=== PATIENT | male | born 1940 | race Caucasian/White ===

== ENCOUNTER 2016-09-22 13:59 | Inpatient (IN) ==
--- NOTE | 2016-09-22 15:25 | XRay Report ---
Portable chest Date: 09/22/2016 Clinical history: Alteration of consciousness Comparison: 08/01/2016 Technique: Portable AP sitting chest Findings: The heart is minimally enlarged with uncoiling of the aorta. Chronic scarring in the lungs with stable mediastinum and osseous structures. Chronic volume loss in the distal left clavicle. Impression: No acute cardiopulmonary pathology identified. PROCEDURE INTERPRETED AT [facility] DEPARTMENT OF RADIOLOGY Final Report Signed by: Dr. Aimee Atkins
--- NOTE | 2016-09-22 15:26 | CT Report ---
History: Mental status changes Date: 09/22/2016 Study: CT head without contrast Comparison exam: August 01, [address] sections were obtained through the head without IV contrast. This CT exam was performed using one or more the following dose reduction techniques: Automated exposure control, adjustment of the MA and/or KV according to patient size, or use of iterative reconstruction technique. There is moderate diffuse cerebral atrophy. The ventricles are midline in position without evidence of hydrocephalus. There is no mass or parenchymal hemorrhage. There is no gross CT evidence of acute cortical stroke. There is a moderate amount of ill-defined low density in the periventricular white matter without mass effect compatible with changes of small vessel disease. There are some changes of chronic ischemic disease in either putamen and also in the [place]. There is moderate distal carotid artery calcification. Impression: Chronic ischemic changes. Cerebral atrophy. No definite acute process. PROCEDURE INTERPRETED AT [facility] DEPARTMENT OF RADIOLOGY Final Report Signed by: Dr. Elsi Patricia
[2016-09-22 15:43] LABS: Basophils # 0.1 10*3/uL (0.0-0.2); Basophils % 0.5 % (0.0-0.8); Eosinophils % 0.3 % (0.00-10.9); Hematocrit 33.5 VOL% (42.0-52.0); Hemoglobin 11.8 GM/DL (14.0-18.0); Immature Granulocytes % 0.5 %; Immature Granulocytes Absolute 0.05 #; Lymphocytes # 1.4 10*3/uL (1.4-4.0); Lymphocytes % 14.8 % (21.2-54.2); Mean Corpuscular HGB Conc 35.2 GM/DL (32-36); Mean Corpuscular Hemoglobin 32 PG (27-34); Mean Corpuscular Volume 90.3 FL (87-102); Mean Platelet Volume 9.7 FL (9.6-12.0); Monocytes # 0.6 10*3/uL (0.11-0.8); Monocytes % 6.9 % (1.7-12.7); Neutrophils # 7.2 10*3/uL (1.4-7.4); Platelet Count 305 T/CUMM (130-400); Red Blood Count 3.71 MC/CUMM (3.8-5.5); Red Cell Distribution Width 13.4 % (9.3-17.3); White Blood Count 9.3 T/CUMM (4-12)
[2016-09-22 15:48] LABS: Apearance,Urine CLEAR (Clear); Bilirubin,Urine Negative (Negative); Blood, Urine Negative (Negative); Glucose,Urine (UA) Negative (Negative); Hyaline Casts,Urine 1 /LPF (0-3); Ketones,Urine 5 mg/dL (Negative); Nitrite,Urine Negative (Negative); Protein,Urine Negative; RBC,Urine 1 /HPF (0-4); Squamous Epithelial Cell,Urine Occasional /HPF (0-10); Urine Color Yellow (Yellow); Urine Specific Gravity 1.019 (1.001-1.035); Urine Urobilinogen < 2.0 EU/DL (0.2-1.0); WBC,Urine 2 /HPF (0-6)
[2016-09-22 16:01] LABS: Albumin 4.4 G/DL (3.4-5.0); Bilirubin,Total 0.5 MG/DL (0.2-1.0); Calcium 9.5 MG/DL (8.5-10.1); Osmolality,Calculated 278.4 MOS/KG (273-304); Potassium 5.1 MMOL/L (3.5-5.1); Total Protein 7.7 G/DL (6.4-8.3)
--- NOTE | 2016-09-22 16:12 | Emergency Department Note ---
Ezequiel Erickson Brittany, am scribing for, and in the presence of, Robbi Alvarez MD 15:07. Kim Erickson Phillip K, MD, personally performed the services described in this documentation, ascribed by Karli Nieves in my presence, and it is both accurate and complete 540 . Arrival - Arrival ED Nursing Triage Note: Brought in by EMS-sent from [facility] [place] for further evaluation of altered LOC and "abnormal movements". halfway staff states that they do not know when symptoms started. Mode of Arrival: Stretcher Limitations: No Limitations, Altered Mental Status (All information was given by daughter) Source: Family - History of Present Illness Onset (ago): unknown Consistency: constant Severity: moderate <Robbi Alvarez - Last Filed: 09/22/16 16:11> <Hima Pickering - Last Filed: 09/22/16 17:22> - Arrival Chief Complaint: Altered Mental Status Stated Complaint: Altered LOC Time Seen by Provider: 09/22/16 14:34 - History of Present Illness HPI Narrative: This is a 76 y/o white male,who presents to the ED by EMS for further evaluation of AMS. His daughter states she recieved a call earlier today and was told her father was having "abnormal movements" while at the halfway. His daughter states this all started back in May when he was staying with friends/family out of town and fell off a barstool. She state since then pt has gone "down hill". His daughter states pt has no normal baseline, each day is different for the pt. She reports pt has not ambulated since May. She states there has not been word of a fever. Pt's nurse called to the halfway and was told pt was started on Cogentin and Seroquel today. Pt has no other complaints/pain in the ED at this time. Pt has a PMHx of NIDDM, TIA, depression, Parkinson's disease, peripheral neuropathy, and dyslipidemia. Pt denies a surgical Hx. Pt denies a family medical hx. Pt denies a social Hx. ( Karli Nieves) This is a 76 y/o white male,who presents to the ED by EMS for further evaluation of AMS. His daughter states she recieved a call earlier today and was told her father was having "abnormal movements" while at the halfway. His daughter states this all started back in May when he was staying with friends/family out of town and fell off a barstool. She state since then pt has gone "down hill". His daughter states pt has no normal baseline, each day is different for the pt. She reports pt has not ambulated since May. She states there has not been word of a fever. Pt's nurse called to the halfway and was told pt was started on Cogentin and Seroquel today. Pt has no other complaints/pain in the ED at this time. Pt has a PMHx of NIDDM, TIA, depression, Parkinson's disease, peripheral neuropathy, and dyslipidemia. Pt denies a surgical Hx. Pt denies a family medical hx. Pt denies a social Hx. ( Robbi Alvarez) Allergies/Adverse Reactions: Allergies Allergy/AdvReac Type Severity Reaction Status Date / Time No Known Allergies Allergy Verified 08/01/16 18:41 Home Medications: Home Medications Medication Instructions Recorded Confirmed Type Acetaminophen [Acetaminophen ER 650 mg PO Q4H PRN 08/01/16 08/01/16 History Tab] Carbidopa/Levodopa 25-100 [Sinemet 2 tablet PO QID 08/01/16 08/01/16 History 25-100] Cholecalciferol (Vitamin D3) 4,000 unit PO DAILY 08/01/16 08/01/16 History [Vitamin D3] Citalopram [CeleXA] 20 mg PO DAILY 08/01/16 08/01/16 History Clopidogrel Bisulfate [Clopidogrel] 75 mg PO DAILY 08/01/16 08/01/16 History Cyanocobalamin (Vitamin B-12) 1,000 mcg PO DAILY 08/01/16 08/01/16 History [Vitamin B-12] Dextrose [Glucose 40% Gel] 15 gm PO DAILY PRN 08/01/16 08/01/16 History Ergocalciferol (Vitamin D2) 50,000 unit PO WE 08/01/16 08/01/16 History [Vitamin D2] Glucagon 1 mg IM PRN PRN 08/01/16 08/01/16 History Ibuprofen Tab [Motrin Tab] 400 mg PO Q8H PRN 08/01/16 08/01/16 History Magnesium Hydroxide Susp [Milk of 30 ml PO DAILY PRN 08/01/16 08/01/16 History Magnesia] Metformin HCl 1,000 mg PO BID 08/01/16 08/01/16 History Polyethylene Glycol Powder 17 gm PO DAILY 08/01/16 08/01/16 History [Miralax] Pramipexole [Mirapex] 1 mg PO TID 08/01/16 08/01/16 History Tamsulosin [Flomax] 0.4 mg PO DAILY 08/01/16 08/01/16 History Tramadol HCl [Ultram] 50 mg PO Q12H PRN 08/01/16 08/01/16 History Review of System - Review of System 12 point system: reviewed and no additional remarkable complaints except as stated - Review of System Constitutional: Absent: fever Neurological: Present: other (AMS) <Robbi Alvarez - Last Filed: 09/22/16 16:11> Medical,Surgical,& Family Hx - Medical History Psychological: History of: Depression Neurology: History of: Parkinson's Disease, Peripheral Neuropathy, TIA Endocrine: History of: Diabetes Mellitus (NIDDM), Dyslipidemia - Social History Smoking Status: Unknown if ever smoked Frequency of Alcohol Use: Unknown Type of Drug Use: Unknown <Robbi Alvarez - Last Filed: 09/22/16 16:11> Exam - General General appearance: in no apparent distress - Head Head exam: Present: atraumatic, normocephalic, normal inspection - Eye Eye exam: Present: other (Abrasion to the left eye lid) - ENT ENT exam: Present: normal oropharynx, mucous membranes dry, TM's normal bilaterally, normal external ear exam - Neck Neck exam: Present: normal inspection, full ROM, trachea midline. Absent: tenderness, meningismus, lymphadenopathy, thyromegaly - Chest Chest inspection: Present: normal inspection, symmetric chest wall rise. Absent : tenderness, rash, abscess - Respiratory Respiratory exam: Present: normal lung sounds bilaterally. Absent: rales, respiratory distress, rhonchi, stridor, wheezes - Cardiovascular Cardiovascular exam: Present: regular rate, normal rhythm, normal heart sounds. Absent: murmur, rubs, gallop, clicks, JVD - Abdominal Exam Abdominal exam: Present: soft, normal bowel sounds. Absent: distention, tenderness, guarding, rebound, rigidity - Rectal Exam Rectal exam: Present: deferred - Extremities Exam Extremities exam: Present: normal inspection, full ROM, normal capillary refill. Absent: tenderness, pedal edema, joint swelling, calf tenderness - Back Exam Back exam: Present: normal inspection, full ROM. Absent: tenderness, muscle spasm, rashes - Neurological Exam Neurological exam: Present: other (Does not follow commands) - Psychiatric Psychiatric exam: Present: normal affect, normal mood. Absent: depressed, agitated, anxious, flat affect, manic - Skin Skin exam: Present: warm, dry, intact, normal color. Absent: rash, cyanosis, diaphoresis, erythema, pallor, mottled <Robbi Alvarez - Last Filed: 09/22/16 16:11> - Rectal Exam Rectal exam: Present: heme (-) stool <Hima Pickering - Last Filed: 09/22/16 17:22> Vital Signs: Vital Signs Temperature 97.5 F L 09/22/16 14:07 Pulse Rate 69 09/22/16 14:07 Respiratory Rate 18 09/22/16 14:25 Blood Pressure 118/65 09/22/16 14:07 O2 Sat by Pulse Oximetry 100 09/22/16 14:07 Course <Robbi Alvarez - Last Filed: 09/22/16 16:11> - Consultations Time: 17:21 <Hima Pickering - Last Filed: 09/22/16 17:22> - Consultations Consultation #1: Hospitalist will admit patient (Hima Pickering) Results - EKG EKG results: interpreted by ERMD, sinus rhythm (Nonspecific ST-T changes) - Diagnostic Findings Procedure: Chest x-ray: report reviewed by me (Nothing acute.), CT: report reviewed by me (CT head shows no acute intracranial abnormality.) <Robbi Alvarez - Last Filed: 09/22/16 16:11> - Labs CBC & BMP: 09/22/16 15:34 09/22/16 15:34 <Hima Pickering - Last Filed: 09/22/16 17:22> Disposition <Robbi Alvarez - Last Filed: 09/22/16 16:11> Case discussed with: patient, patient's family Time of Disposition: 17:22 <Hima Pickering - Last Filed: 09/22/16 17:22> Clinical Impression: Altered mental status, Acute renal failure, History of Parkinson's disease, Extrapyramidal and movement disorder Disposition: Still a Patient Condition: Stable
[2016-09-22] MEDS ORDERED: SODIUM CHLORIDE 0.9% 1,000 ML IV STA (16:28)
[2016-09-22] MEDS ORDERED: DEXTROSE 50% 25 GM/50 ML VIAL IV STA (16:28)
[2016-09-22] MEDS ORDERED: DEXTROSE 50% 25 GM/50 ML VIAL IV ONE (16:40)
--- NOTE | 2016-09-22 17:57 | Hospitalist History & Physical ---
Assessment and Plan (1) Dehydration Status: Acute Current Visit: Yes (2) Hypoglycemia Status: Acute Current Visit: Yes (3) Anemia Status: Acute Current Visit: Yes (4) Altered mental status Status: Acute Current Visit: Yes (5) Acute renal failure Status: Acute Current Visit: Yes (6) History of Parkinson's disease Status: Acute Current Visit: Yes (7) Extrapyramidal and movement disorder Status: Acute Assessment and plan: We will plan for this patient will be admitted meaning to our service put him on hydration. Recheck labs in the morning. Patient has increase in AST for some unknown reason order liver ultrasound. We will culture his urine. Since his has these chloroform dyskinesia type movements will consult neurology for their input on his regiment. Will hold his Cogentin. Evaluate his anemia. Current Visit: Yes History of Present Illness Chief complaint: Dyskinesia and altered mental status History of present illness: Mr. Barnhart is a 76 year old male with past medical history significant for Parkinson's, dementia, hallucinations, diabetes and peripheral vascular disease who presents to our ER today. Patient is a resident of [facility]. He is followed by Dr. Eduardo Mehta. This morning the skilled nursing called the daughter since that his dyskinesias with his arms and tongue movements were increased. They were going to try some Cogentin. After the gave him the Cogentin is sedated him and patient was sent up to our hospital to further evaluate his dyskinesias and altered mental status. His daughter reports that he is on been going downhill for a little while. 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 This is surprising given that he is 76 years old. She said in May he was living with friends out of town and fell off a barstool. And that he has been basically been going downhill since. She reports that he has no real normal baseline. She says every day is different. He has not walked since May. Patient is currently sedated and voices no complaints. He has been given IV fluids in the emergency room. I was consulted to admit him. I discussed CODE STATUS with the daughter. She says he is a DO NOT RESUSCITATE. She said this was voiced by the patient himself when he had a clear mind. Home Medications Medication Instructions Recorded Confirmed Type Carbidopa/Levodopa 25-100 [Sinemet 2 tablet PO QID 04/28/17 06/19/17 History 25-100] Citalopram [CeleXA] 20 mg PO DAILY 08/01/16 09/22/16 History Clopidogrel Bisulfate [Clopidogrel] 75 mg PO DAILY 08/01/16 09/22/16 History Dextrose [Glucose 40% Gel] 15 gm PO DAILY PRN 08/01/16 09/22/16 History Glucagon 1 mg IM PRN PRN 08/01/16 09/22/16 History Pramipexole [Mirapex] 1 mg PO TID 08/01/16 09/22/16 History Tamsulosin [Flomax] 0.4 mg PO DAILY 08/01/16 09/22/16 History Tramadol HCl [Ultram] 50 mg PO BID 08/01/16 09/22/16 History Aspirin EC Tab 81 mg PO DAILY 09/22/16 09/22/16 History Benztropine Mesylate 1 mg PO BID 09/22/16 09/22/16 History Cholecalciferol (Vitamin D3) 2,000 unit PO DAILY 09/22/16 09/22/16 History [Vitamin D3] Ibuprofen Tab [Motrin Tab] 800 mg PO Q8H PRN 09/22/16 09/22/16 History Metformin HCl 1,000 mg PO BID 09/22/16 09/22/16 History Multivitamin [Multivitamins] 1 each PO DAILY 09/22/16 09/22/16 History Nystatin [Nystatin Cream] 1 applic TOP BID 09/22/16 09/22/16 History QUEtiapine [SEROquel] 25 mg PO QPM 09/22/16 09/22/16 History Quetiapine Fumarate 25 mg PO DAILY 09/22/16 09/22/16 History Sulfameth/Trimeth 800-160 Tab 1 tablet PO BID 09/22/16 09/22/16 History [Bactrim DS Tab] amLODIPine [Norvasc] 5 mg PO DAILY 09/22/16 09/22/16 History Allergies Allergy/AdvReac Type Severity Reaction Status Date / Time No Known Allergies Allergy Verified 08/01/16 18:41 Medical,Surgical,& Family Hx - Medical History Psychological: History of: Depression Neurology: History of: Parkinson's Disease, Peripheral Neuropathy, TIA Endocrine: History of: Diabetes Mellitus (NIDDM), Dyslipidemia - Surgical History HEENT Surgeries: Surgical HX of: Carotid Endarterectomy - Family History Family History: Reports;: Family Hypertension - Social History Smoking Status: Unknown if ever smoked Frequency of Alcohol Use: None Type of Drug Use: Methamphetamine (None since May) ROS unobtainable: due to mental status Exam - Constitutional Vitals: Period Temp Pulse Resp BP Sys/Joyce Pulse Ox Last 24 Hr 97.5 F-97.5 F 69-69 18-20 118-118/65-65 100 General appearance: under weight - Head Head exam: Present: normal inspection - Eye Eye exam: Present: other (Patient has a bruise to the left eyelid) - ENT ENT exam: Present: normal exam - Respiratory Respiratory exam: Present: clear to auscultation bilaterally - Cardiovascular Cardiovascular exam: Present: regular rate and rhythm - GI/Abdominal GI/Abdominal exam: Present: normal bowel sounds, other (Heme-negative per ER exam) - Extremities Exam Extremities exam: Present: normal inspection - Back Exam Back exam: Present: normal inspection - Neurological Exam Neurological exam: Present: altered (Currently sedated) - Psychiatric Psychiatric exam: Present: other (Currently sedated) - Skin Skin exam: Present: normal color Results - Labs CBC & BMP: 09/22/16 15:34 09/22/16 15:34
[2016-09-22] MEDS ORDERED: ONDANSETRON 4 MG/2 ML VIAL IV PRN (18:05)
[2016-09-22] MEDS ORDERED: ACETAMINOPHEN 325 MG TABLET PO PRN (18:05)
[2016-09-22] MEDS ORDERED: DEXTROSE 50% 25 GM/50 ML VIAL IV PRN (18:15)
[2016-09-22] MEDS ORDERED: GLUCAGON 1 MG VIAL IM PRN (18:15)
[2016-09-22] MEDS ORDERED: QUEtiapine 25 MG TABLET PO SCH (19:00)
[2016-09-22 19:06] LABS: Vitamin B12 304 PG/ML (211-911)
[2016-09-22] MEDS: CARBIDOPA/LEVODOPA 25-100 MG TABLET PO SCH (21:01)
[2016-09-22] MEDS: INSULIN REGULAR 100 UNIT/ML SUBCUT SCH (21:01)
[2016-09-22] MEDS: BENZTROPINE 1 MG TABLET PO SCH (21:01)
[2016-09-22] MEDS: PRAMIPEXOLE 1 MG TABLET PO SCH (21:01)
[2016-09-22] MEDS: ENOXAPARIN 30 MG/0.3 ML SYRINGE SUBCUT SCH (21:08)
[2016-09-22] MEDS: SODIUM CHLORIDE 0.9% 1,000 ML IV SCH (21:12)
[2016-09-22] MEDS: cefTRIAXone 1,000 MG in SODIUM CHLORIDE 0.9% 100 ML IV SCH (21:12)
[2016-09-22 23:18] LABS: Basophils % 0.4 % (0.0-0.8); Eosinophils % 0.3 % (0.00-10.9); Hematocrit 34.3 VOL% (42.0-52.0); Hemoglobin 11.6 GM/DL (14.0-18.0); Immature Granulocytes % 0.4 %; Immature Granulocytes Absolute 0.04 #; Lymphocytes # 1.4 10*3/uL (1.4-4.0); Lymphocytes % 14.8 % (21.2-54.2); Mean Corpuscular HGB Conc 33.8 GM/DL (32-36); Mean Corpuscular Hemoglobin 31 PG (27-34); Mean Corpuscular Volume 91.5 FL (87-102); Mean Platelet Volume 10.5 FL (9.6-12.0); Monocytes # 0.6 10*3/uL (0.11-0.8); Monocytes % 6.6 % (1.7-12.7); Neutrophils % 77.5 % (38.7-73.9); Platelet Count 330 T/CUMM (130-400); Red Blood Count 3.75 MC/CUMM (3.8-5.5); Red Cell Distribution Width 13.5 % (9.3-17.3); White Blood Count 9.1 T/CUMM (4-12)
[2016-09-23 00:12] LABS: Sedimentation Rate-Westergren 34 MM/HR (0-20)
--- NOTE | 2016-09-23 04:21 | EKG Report ---
Stationary ECG Study [facility] ER Test Date: 09/22/2016 3:22:47 PM Pat Name: MAGY DONNELLY Department: Room: Gender: M Software Designer: : 1940 Requested by: Robbi Nuñez Order Number: [id number] Reading MD: DIGNA LUNA Intervals [place] Rate: 63 P: 43 NH: 148 QRS: 7 QRSD: 73 T: -12 QT: 414 QTc: 422 Interpretive Statements SINUS RHYTHM MINIMAL VOLTAGE CRITERIA FOR LVH, CONSIDER NORMAL VARIANT NONSPECIFIC T-WAVE ABNORMALITY Electronically Signed On 09-22-16 16:35:15 CDT by DIGNA LUNA [email or web address]
[2016-09-23] MEDS: SODIUM CHLORIDE 0.9% 1,000 ML IV SCH ×2 (05:49→16:41)
[2016-09-23 06:29] LABS: Basophils % 0.6 % (0.0-0.8); Eosinophils # 0.1 10*3/uL (0.0-0.87); Eosinophils % 1.1 % (0.00-10.9); Hematocrit 33.9 VOL% (42.0-52.0); Hemoglobin 11.7 GM/DL (14.0-18.0); Immature Granulocytes % 1.1 %; Immature Granulocytes Absolute 0.08 #; Lymphocytes # 1.1 10*3/uL (1.4-4.0); Lymphocytes % 14.9 % (21.2-54.2); Mean Corpuscular HGB Conc 34.5 GM/DL (32-36); Mean Corpuscular Hemoglobin 32 PG (27-34); Mean Corpuscular Volume 91.6 FL (87-102); Mean Platelet Volume 9.9 FL (9.6-12.0); Monocytes # 0.4 10*3/uL (0.11-0.8); Monocytes % 5.3 % (1.7-12.7); Neutrophils # 5.5 10*3/uL (1.4-7.4); Platelet Count 279 T/CUMM (130-400); Red Cell Distribution Width 13.6 % (9.3-17.3); White Blood Count 7.2 T/CUMM (4-12)
[2016-09-23 06:57] LABS: Albumin 3.4 G/DL (3.4-5.0); Bilirubin,Total 1.2 MG/DL (0.2-1.0); Calcium 8.3 MG/DL (8.5-10.1); Osmolality,Calculated 283.5 MOS/KG (273-304); Potassium 4.2 MMOL/L (3.5-5.1); Total Protein 6.3 G/DL (6.4-8.3)
[2016-09-23] MEDS: MULTIVITAMIN (CENTRUM) TABLET PO SCH (08:36)
[2016-09-23] MEDS: ASPIRIN EC 81 MG TABLET PO SCH (08:36)
[2016-09-23] MEDS: CHOLECALCIFEROL 1,000 UNIT TABLET PO SCH (08:36)
[2016-09-23] MEDS: CLOPIDOGREL 75 MG TABLET PO SCH (08:36)
[2016-09-23] MEDS: TAMSULOSIN 0.4 MG CAPSULE PO SCH (08:36)
[2016-09-23] MEDS: CARBIDOPA/LEVODOPA 25-100 MG TABLET PO SCH ×4 (08:36→20:24)
[2016-09-23] MEDS: CITALOPRAM 20 MG TABLET PO SCH (08:36)
[2016-09-23] MEDS: amLODIPine 5 MG TABLET PO SCH (08:36)
[2016-09-23] MEDS: BENZTROPINE 1 MG TABLET PO SCH (08:37)
[2016-09-23] MEDS: PRAMIPEXOLE 1 MG TABLET PO SCH ×3 (08:37→20:24)
[2016-09-23] MEDS: INSULIN REGULAR 100 UNIT/ML SUBCUT SCH ×4 (08:40→20:39)
[2016-09-23 08:57] LABS: Folate 5.8 NG/ML (5.4-24.0)
[2016-09-23] MEDS ORDERED: QUEtiapine 25 MG TABLET PO SCH (09:00)
[2016-09-23 09:57] LABS: Hemoglobin A1 (Alkaline) 97.8 % (96.5-98.5); Hemoglobin A2 (Alkaline) 2.2 % (1.5-3.5)
--- NOTE | 2016-09-23 13:05 | Hospitalist Progress Note ---
Assessment and Plan (1) Altered mental status Status: Acute Assessment and plan: CT head showed Chronic ischemic changes. Cerebral atrophy. No definite acute process.UC- no growth. Follow BC I suspect he is back to his baseline which is dementia plan Follow Neuro's recommendations -continue IVF, IV antibiotics -follow cultures Current Visit: Yes (2) Acute renal failure Status: Acute Assessment and plan: improving with IVF BMP in am Current Visit: Yes (3) History of Parkinson's disease Status: Acute Assessment and plan: continue with home meds. Family was concerned he got too much of Cogentin in the [place] [facility]. Neuro to assist. Current Visit: Yes (4) Extrapyramidal and movement disorder Status: Acute Assessment and plan: Neuro to advise Current Visit: Yes (5) Hypoglycemia Status: Acute Assessment and plan: Speech to evaluate his swallowing. Add D5W to his IVF Blood sugar monitoring Current Visit: Yes (6) Anemia Status: Acute Assessment and plan: monitor cbc Current Visit: Yes Hospitalist: Subjective Interval history: Patient seen. He was awake but confused. Neuro is yet to see. Exam - Constitutional Vitals: Period Temp Pulse Resp BP Sys/Joyce Pulse Ox Last 24 Hr 96.8 F-97.9 F 56-69 18-20 109-134/49-65 94-100 General appearance: no acute distress - Respiratory Respiratory exam: Present: clear to auscultation bilaterally - Cardiovascular Cardiovascular exam: Present: regular rate and rhythm - GI/Abdominal GI/Abdominal exam: Present: normal bowel sounds - Extremities Exam Extremities exam: Present: normal inspection - Neurological Exam Neurological exam: Present: alert Results - Labs CBC & BMP: 09/23/16 06:00 09/23/16 06:00 Lab Results: I have reviewed the past 24 hour labs
[2016-09-23] MEDS ORDERED: SKIN HEALING OINT (AQUAPHOR) 50 GM TUBE TOP PRN (13:36)
--- NOTE | 2016-09-23 13:53 | Neurology Consult Note ---
History of Present Illness History of present illness: Mr. Barnhart is a 76 year old right-handed white gentleman with past medical history significant for Parkinson's, dementia, hallucinations, diabetes and peripheral vascular disease who is a custodial resident transferred to [facility] due to increasing dyskinetic movement restlessness and agitation for the past 24 hours or more. Yesterday morning the custodial called the daughter since that his restless with his arms and tongue movements were increased. They were going to try some Cogentin. After the gave him the Cogentin is sedated him and patient was sent up to our hospital to further evaluate his dyskinesias and altered mental status. His daughter reports that he is on been going downhill for a little while. 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 This is surprising given that he is 76 years old. She said in May he was living with friends out of town and fell off a barstool. And that he has been basically been going downhill since. She reports that he has no real normal baseline. She reported every day is different. He has not walked since May. Patient is currently just mumbling and has no speech. He has been given IV fluids in the emergency room. Patient is a DO NOT RESUSCITATE. CT of the head reveals no acute abnormalities. Home Medications Medication Instructions Recorded Confirmed Type Carbidopa/Levodopa 25-100 [Sinemet 2 tablet PO QID 08/01/16 09/22/16 History 25-100] Citalopram [CeleXA] 20 mg PO DAILY 08/01/16 09/22/16 History Clopidogrel Bisulfate [Clopidogrel] 75 mg PO DAILY 08/01/16 09/22/16 History Dextrose [Glucose 40% Gel] 15 gm PO DAILY PRN 08/01/16 09/22/16 History Glucagon 1 mg IM PRN PRN 08/01/16 09/22/16 History Pramipexole [Mirapex] 1 mg PO TID 08/01/16 09/22/16 History Tamsulosin [Flomax] 0.4 mg PO DAILY 08/01/16 09/22/16 History Tramadol HCl [Ultram] 50 mg PO BID 08/01/16 09/22/16 History Aspirin EC Tab 81 mg PO DAILY 09/22/16 09/22/16 History Benztropine Mesylate 1 mg PO BID 09/22/16 09/22/16 History Cholecalciferol (Vitamin D3) 2,000 unit PO DAILY 09/22/16 09/22/16 History [Vitamin D3] Ibuprofen Tab [Motrin Tab] 800 mg PO Q8H PRN 09/22/16 09/22/16 History Metformin HCl 1,000 mg PO BID 09/22/16 09/22/16 History Multivitamin [Multivitamins] 1 each PO DAILY 09/22/16 09/22/16 History Nystatin [Nystatin Cream] 1 applic TOP BID 09/22/16 09/22/16 History QUEtiapine [SEROquel] 25 mg PO QPM 09/22/16 09/22/16 History Quetiapine Fumarate 25 mg PO DAILY 09/22/16 09/22/16 History Sulfameth/Trimeth 800-160 Tab 1 tablet PO BID 09/22/16 09/22/16 History [Bactrim DS Tab] amLODIPine [Norvasc] 5 mg PO DAILY 09/22/16 09/22/16 History Allergies Allergy/AdvReac Type Severity Reaction Status Date / Time No Known Allergies Allergy Verified 08/01/16 18:41 12 point system: reviewed and no additional remarkable complaints except as stated Medical,Surgical,& Family Hx - Medical History Psychological: History of: Depression No history of: Anxiety Disorders, ADHD, Behavior Problems, Bipolar Disorder, Previous Suicide Attempt, Psychiatric/Substance Abuse Tx, Schizophrenia, Violent Behavior, Psychiatric Problems Neurology: History of: Parkinson's Disease, Peripheral Neuropathy, TIA Endocrine: History of: Diabetes Mellitus (NIDDM), Dyslipidemia - Surgical History Cardiac Surgeries: Sugical HX of: Carotid Endarterectomy HEENT Surgeries: Surgical HX of: Carotid Endarterectomy - Family History Family History: Reports;: Family Hypertension - Social History Smoking Status: Unknown if ever smoked Frequency of Alcohol Use: None Type of Drug Use: None, Methamphetamine Exam - Constitutional Vitals: Period Temp Pulse Resp BP Sys/Joyce Pulse Ox Last 24 Hr 96.8 F-97.9 F 56-69 18-20 109-134/49-65 94-100 Exam: GENERAL: Patient is in no acute distress. NECK: Neck is supple. There is no JVD. No carotid bruits present. No thyroid masses. CVS: First and second heart sounds are normal. There is no S3 present. Regular rate and rhythm. RESPIRATORY: Lungs are clear to auscultation without any rales or rhonchi. ABDOMEN: Soft and non-tender. Bowel sounds are present. There is no hepatosplenomegaly. EXT: There is no palpable edema. Peripheral pulses are present. Skin: No rashes Central Nervous system: General: Alert, awake but disoriented Speech: Mumbling Comprehension: Fair Facial expressions: Normal Cranial Nerves: Pupils are equally reactive to light. Extraocular movements are intact. No facial asymmetry is seen. Motor: Bulk and Tone is normal. Strength moving all 4 extremities Sensory: Cannot be tested Reflexes: 1+ and symmetrical Cerebellar function: Cannot be tested Toes: Equivocal Gait: Cannot be tested Results - Labs CBC & BMP: 09/23/16 06:00 09/23/16 06:00 Assessment and Plan (1) Extrapyramidal and movement disorder Status: Acute Assessment and plan: Patient does have a history of Parkinson disease however these movements could very well be due to antipsychotic use. Stop Seroquel and Cogentin MRI brain Continue Sinemet and Mirapex for now Thank you the consult we will watch him closely Current Visit: Yes (2) Altered mental status Status: Acute Assessment and plan: This could very well be due to underlying dementia We will watch him for now Current Visit: Yes
[2016-09-23] MEDS: DEXTROSE 5% NACL 0.45% 1,000 ML IV SCH ×2 (13:58→23:04)
[2016-09-23] MEDS: cefTRIAXone 1,000 MG in SODIUM CHLORIDE 0.9% 100 ML IV SCH (17:42)
[2016-09-23] MEDS: ENOXAPARIN 30 MG/0.3 ML SYRINGE SUBCUT SCH (17:43)
[2016-09-24 05:44] LABS: Calcium 8.5 MG/DL (8.5-10.1); Osmolality,Calculated 264.5 MOS/KG (273-304); Potassium 4.1 MMOL/L (3.5-5.1)
[2016-09-24 05:53] LABS: Basophils % 0.6 % (0.0-0.8); Eosinophils # 0.2 10*3/uL (0.0-0.87); Eosinophils % 3.1 % (0.00-10.9); Hematocrit 36.1 VOL% (42.0-52.0); Hemoglobin 11.7 GM/DL (14.0-18.0); Immature Granulocytes % 0.4 %; Immature Granulocytes Absolute 0.03 #; Lymphocytes # 1.3 10*3/uL (1.4-4.0); Lymphocytes % 18.4 % (21.2-54.2); Mean Corpuscular HGB Conc 32.4 GM/DL (32-36); Mean Corpuscular Hemoglobin 31 PG (27-34); Mean Platelet Volume 9.8 FL (9.6-12.0); Monocytes # 0.5 10*3/uL (0.11-0.8); Monocytes % 7.2 % (1.7-12.7); Neutrophils # 4.8 10*3/uL (1.4-7.4); Neutrophils % 70.3 % (38.7-73.9); Platelet Count 243 T/CUMM (130-400); Red Cell Distribution Width 13.6 % (9.3-17.3); White Blood Count 6.9 T/CUMM (4-12)
[2016-09-24] MEDS: INSULIN REGULAR 100 UNIT/ML SUBCUT SCH ×4 (08:37→20:45)
[2016-09-24] MEDS: PRAMIPEXOLE 1 MG TABLET PO SCH ×3 (08:38→20:40)
[2016-09-24] MEDS: TAMSULOSIN 0.4 MG CAPSULE PO SCH (08:38)
[2016-09-24] MEDS: ASPIRIN EC 81 MG TABLET PO SCH (08:38)
[2016-09-24] MEDS: CARBIDOPA/LEVODOPA 25-100 MG TABLET PO SCH ×4 (08:38→20:40)
[2016-09-24] MEDS: amLODIPine 5 MG TABLET PO SCH (08:38)
[2016-09-24] MEDS: CLOPIDOGREL 75 MG TABLET PO SCH (08:38)
[2016-09-24] MEDS: CITALOPRAM 20 MG TABLET PO SCH (08:38)
[2016-09-24] MEDS: CHOLECALCIFEROL 1,000 UNIT TABLET PO SCH (08:38)
[2016-09-24] MEDS: MULTIVITAMIN (CENTRUM) TABLET PO SCH (08:43)
[2016-09-24] MEDS: DOCUSATE SODIUM 100 MG CAPSULE PO SCH ×2 (11:04→20:40)
--- NOTE | 2016-09-24 11:24 | Hospitalist Progress Note ---
Assessment and Plan (1) Altered mental status Status: Acute Assessment and plan: CT head showed Chronic ischemic changes. Cerebral atrophy. No definite acute process.UC- no growth. Follow BC I suspect he is back to his baseline which is dementia. He was awake but mostly confused. Neuro has seen and stopped seroquel and Cogentin. UC-negative plan continue Neuro's recommendations -continue IVF, IV antibiotics -follow cultures Current Visit: Yes (2) Acute renal failure Status: Acute Assessment and plan: improved with IVF BMP in am Current Visit: Yes (3) History of Parkinson's disease Status: Acute Assessment and plan: Neuro wants him to continue with Sinemet and Mirapex for now and to dc Seroquel and Cogentin Current Visit: Yes (4) Extrapyramidal and movement disorder Status: Acute Assessment and plan: Patient has a history of Parkinson disease however these movements could be due to antipsychotic use. Neuro has stopped his Seroquel and Cogentin. will get an MRI as recommended Current Visit: Yes (5) Hypoglycemia Status: Acute Assessment and plan: Speech to evaluate his swallowing.Continue D5W saline.Seroquel can cause hypoglycemia but this has been stopped. Continue Blood sugar monitoring Current Visit: Yes (6) Anemia Status: Acute Assessment and plan: monitor cbc Current Visit: Yes (7) Constipation Status: Acute Assessment and plan: start colace 100mg bid Current Visit: Yes Hospitalist: Subjective Interval history: Patient was admitted from the [place] for evalution of AMS. Family states Cogentin made patient way too drowsy, Neuro has seen and dcd Congentin and Seroquel. This am, daughter was emotional stating they were exhausted by patient's neediness. She states patient hallucinates every now and then, that he was also constipated. Exam - Constitutional Vitals: Period Temp Pulse Resp BP Sys/Joyce Pulse Ox Last 24 Hr 97.7 F-98.2 F 53-62 16-20 88-124/50-66 96-99 General appearance: no acute distress - Head Head exam: Present: normal inspection - Respiratory Respiratory exam: Present: clear to auscultation bilaterally - Cardiovascular Cardiovascular exam: Present: regular rate and rhythm - GI/Abdominal GI/Abdominal exam: Present: normal bowel sounds - Extremities Exam Extremities exam: Present: normal inspection - Neurological Exam Neurological exam: Present: alert, other (confused) Results - Labs CBC & BMP: 09/24/16 04:41 09/24/16 04:41 Lab Results: I have reviewed the past 24 hour labs
--- NOTE | 2016-09-24 12:12 | Physician Query Form ---
CLICK EDIT DOCUMENT TO SELECT QUERY ANSWER --> OK --> SIGN Princess England RN Clinical Engagement Liaison W) [phone] (f) [phone] [email or web address] PROVIDERS: Make your selection(s) from the choices in EACH section by typing an "x" and enter comments in the comment section. Please use your independent medical judgment in providing your response. This request does not imply that any particular answer is desired or expected. CLINICAL INDICATORS: (Providers should not edit this section) Based on documentation of "diabetic ulcer to right heel" by the wound care nurse. Please clarify if you agree with the wound care nurse documentation. Based on the above, could you clarify the appropriate diagnosis, if significant , that supports the above abnormalities and additional evaluation, monitoring, and/or treatment rendered: (x ) I agree with the wound care nurse documentation of diabetic ulcer to right heel ( ) I do not agree with the wound care nurse documentation of diabetic ulcer to right heel ( ) Other, please specify: ( ) Clinically unable to determine COMMENTS: PLEASE ALSO DOCUMENT RESPONSE IN PROGRESS NOTES AND/OR DISCHARGE SUMMARY Use of terms such as suspected, likely, or probable (associated with a specific diagnosis that is being evaluated, monitored, or treated as if it exists) are acceptable and can be restated in the discharge summary if not ruled out. MTDD
[2016-09-24] MEDS: DEXTROSE 5% NACL 0.9% 1,000 ML IV SCH ×2 (12:38→12:40)
[2016-09-24] MEDS: diphenhydrAMINE CAP 25 MG CAPSULE PO PRN ×2 (12:38→22:29)
--- NOTE | 2016-09-24 14:25 | Neurology Progress Note ---
Neurology - PN : Subjective Interval history: Patient is more alert and awake and following commands. Speech is slightly more fluent. No new problems reported. MRI is pending. Exam (Progress Note) - Constitutional Vitals: Period Temp Pulse Resp BP Sys/Joyce Pulse Ox Last 24 Hr 97.6 F-98.2 F 53-62 16-20 88-124/50-66 96-99 Exam: GENERAL: Patient is in no acute distress. NECK: Neck is supple. There is no JVD. No carotid bruits present. No thyroid masses. CVS: First and second heart sounds are normal. There is no S3 present. Regular rate and rhythm. RESPIRATORY: Lungs are clear to auscultation without any rales or rhonchi. ABDOMEN: Soft and non-tender. Bowel sounds are present. There is no hepatosplenomegaly. EXT: There is no palpable edema. Peripheral pulses are present. Skin: No rashes Central Nervous system: General: Alert, awake but disoriented Speech: Mumbling Comprehension: Fair Facial expressions: Normal Cranial Nerves: Pupils are equally reactive to light. Extraocular movements are intact. No facial asymmetry is seen. Motor: Bulk and Tone is normal. Strength moving all 4 extremities Sensory: Cannot be tested Reflexes: 1+ and symmetrical Cerebellar function: Cannot be tested Toes: Equivocal Gait: Cannot be tested Results - Labs CBC & BMP: 09/24/16 04:41 09/24/16 04:41 Assessment and Plan (1) Extrapyramidal and movement disorder Status: Acute Assessment and plan: Continue Sinemet and Mirapex at the same dose MRI is pending Current Visit: Yes (2) Altered mental status Status: Acute Assessment and plan: This could very well be due to underlying dementia We will watch him for now Current Visit: Yes
--- NOTE | 2016-09-24 15:51 | Magnetic Resonance Report ---
MR head/brain wo con Indication: Abnormal movement Comparison: CT brain dated September 22, 2016 Technique: Multiplanar magnetic resonance imaging was performed of the brain without the use of intravenous contrast. Findings: Study somewhat limited secondary to motion. Moderate periventricular and subcortical T2 hyperintensity noted which is nonspecific but may reflect chronic microvascular ischemic change. Moderate global volume loss present.. The midline structures are nondisplaced. There is no evidence of hydrocephalus. The james-white matter differentiation is maintained. There is no evidence of acute intracranial hemorrhage or ischemia. The included orbits and their contents appear within normal limits. T2 major vascular flow voids are maintained. IMPRESSION: Limited exam secondary to motion without convincing MR evidence of acute intracranial abnormality. Probable chronic microvascular ischemic change and volume loss. PROCEDURE INTERPRETED AT [facility] Final Report Signed by: Dr Jaiden Jo
[2016-09-24] MEDS: ENOXAPARIN 30 MG/0.3 ML SYRINGE SUBCUT SCH (17:32)
[2016-09-24] MEDS: cefTRIAXone 1,000 MG in SODIUM CHLORIDE 0.9% 100 ML IV SCH (17:32)
[2016-09-25] MEDS ORDERED: ZIPRASIDONE 20 MG/1 ML VIAL IM ONE (00:02)
[2016-09-25] MEDS: ZIPRASIDONE 20 MG/1 ML VIAL IM PRN ×2 (00:05→07:56)
[2016-09-25] MEDS: DEXTROSE 5% NACL 0.9% 1,000 ML IV SCH ×3 (00:35→20:44)
[2016-09-25] MEDS: INSULIN REGULAR 100 UNIT/ML SUBCUT SCH ×4 (07:56→20:46)
[2016-09-25] MEDS: ASPIRIN EC 81 MG TABLET PO SCH (07:59)
[2016-09-25] MEDS: TAMSULOSIN 0.4 MG CAPSULE PO SCH (07:59)
[2016-09-25] MEDS: amLODIPine 5 MG TABLET PO SCH (07:59)
[2016-09-25] MEDS: DOCUSATE SODIUM 100 MG CAPSULE PO SCH ×2 (07:59→20:58)
[2016-09-25] MEDS: CLOPIDOGREL 75 MG TABLET PO SCH (07:59)
[2016-09-25] MEDS: PRAMIPEXOLE 1 MG TABLET PO SCH (08:00)
[2016-09-25] MEDS: CHOLECALCIFEROL 1,000 UNIT TABLET PO SCH (08:00)
[2016-09-25] MEDS: CITALOPRAM 20 MG TABLET PO SCH (08:00)
[2016-09-25] MEDS: MULTIVITAMIN (CENTRUM) TABLET PO SCH (08:00)
[2016-09-25] MEDS: CARBIDOPA/LEVODOPA 25-100 MG TABLET PO SCH ×4 (08:00→20:37)
--- NOTE | 2016-09-25 09:11 | Neurology Progress Note ---
Neurology - PN : Subjective Interval history: Patient still quite delirious primarily in the evenings. MRI of the brain reveals no acute abnormalities. Still quite stiff. Exam (Progress Note) - Constitutional Vitals: Period Temp Pulse Resp BP Sys/Joyce Pulse Ox Last 24 Hr 97.6 F-98.3 F 60-65 18-22 95-144/51-72 95-99 Exam: GENERAL: Patient is in no acute distress. NECK: Neck is supple. There is no JVD. No carotid bruits present. No thyroid masses. CVS: First and second heart sounds are normal. There is no S3 present. Regular rate and rhythm. RESPIRATORY: Lungs are clear to auscultation without any rales or rhonchi. ABDOMEN: Soft and non-tender. Bowel sounds are present. There is no hepatosplenomegaly. EXT: There is no palpable edema. Peripheral pulses are present. Skin: No rashes Central Nervous system: General: Alert, awake but disoriented Speech: Mumbling Comprehension: Fair Facial expressions: Normal Cranial Nerves: Pupils are equally reactive to light. Extraocular movements are intact. No facial asymmetry is seen. Motor: Bulk and Tone is normal. Strength moving all 4 extremities Sensory: Cannot be tested Reflexes: 1+ and symmetrical Cerebellar function: Cannot be tested Toes: Equivocal Gait: Cannot be tested Results - Labs CBC & BMP: 09/24/16 04:41 09/24/16 04:41 Assessment and Plan (1) Extrapyramidal and movement disorder Status: Acute Assessment and plan: Continue Sinemet at the same dose Add Comtan 200 mg 4 times a day Stop Mirapex Current Visit: Yes (2) Altered mental status Status: Acute Assessment and plan: Add Zyprexa 5 mg at 6 PM Current Visit: Yes
[2016-09-25] MEDS: ENTACAPONE 200 MG TABLET PO SCH ×3 (12:51→20:38)
[2016-09-25] MEDS: cefTRIAXone 1,000 MG in SODIUM CHLORIDE 0.9% 100 ML IV SCH (17:33)
[2016-09-25] MEDS: ENOXAPARIN 30 MG/0.3 ML SYRINGE SUBCUT SCH (17:35)
[2016-09-25] MEDS ORDERED: OLANZapine 5 MG TABLET PO SCH (18:00)
--- NOTE | 2016-09-25 18:41 | Hospitalist Progress Note ---
Assessment and Plan (1) Altered mental status Status: Acute Current Visit: Yes (2) History of Parkinson's disease Status: Acute Current Visit: Yes (3) Extrapyramidal and movement disorder Status: Acute Current Visit: Yes Hospitalist: Subjective Interval history: No acute events overnight. Patient still quite confused this morning, this afternoon patient sitting up, eating, oriented x3. Neurology assisting, medications adjusted. Exam - Constitutional Vitals: Period Temp Pulse Resp BP Sys/Joyce Pulse Ox Last 24 Hr 97.5 F-98.3 F 60-77 18-22 108-144/62-72 93-100 General appearance: normal weight - Head Head exam: Present: normocephalic, atraumatic - Eye Eye exam: Present: EOMI Pupils: Present: ALLEGRA - ENT ENT exam: Present: normal exam - Neck Neck exam: Present: normal inspection - Respiratory Respiratory exam: Present: clear to auscultation bilaterally. Absent: rhonchi, wheezes - Cardiovascular Cardiovascular exam: Present: regular rate and rhythm - GI/Abdominal GI/Abdominal exam: Present: normal bowel sounds, soft. Absent: tenderness, rebound - Extremities Exam Extremities exam: Present: normal inspection - Back Exam Back exam: Present: normal inspection - Neurological Exam Neurological exam: Present: alert, oriented X3 - Psychiatric Psychiatric exam: Present: normal affect, normal mood - Skin Skin exam: Present: warm, intact Results - Labs CBC & BMP: 09/24/16 04:41 09/24/16 04:41
[2016-09-25] MEDS: diphenhydrAMINE CAP 25 MG CAPSULE PO PRN (20:37)
[2016-09-26 05:36] LABS: Basophils # 0.1 10*3/uL (0.0-0.2); Basophils % 0.7 % (0.0-0.8); Eosinophils # 0.3 10*3/uL (0.0-0.87); Eosinophils % 4.9 % (0.00-10.9); Hematocrit 33.9 VOL% (42.0-52.0); Hemoglobin 11.4 GM/DL (14.0-18.0); Immature Granulocytes % 0.7 %; Immature Granulocytes Absolute 0.05 #; Lymphocytes # 1.7 10*3/uL (1.4-4.0); Lymphocytes % 25.1 % (21.2-54.2); Mean Corpuscular HGB Conc 33.6 GM/DL (32-36); Mean Corpuscular Hemoglobin 31 PG (27-34); Mean Corpuscular Volume 91.4 FL (87-102); Mean Platelet Volume 10.2 FL (9.6-12.0); Monocytes # 0.5 10*3/uL (0.11-0.8); Neutrophils # 4.1 10*3/uL (1.4-7.4); Neutrophils % 60.6 % (38.7-73.9); Platelet Count 294 T/CUMM (130-400); Red Blood Count 3.71 MC/CUMM (3.8-5.5); Red Cell Distribution Width 13.6 % (9.3-17.3); White Blood Count 6.8 T/CUMM (4-12)
[2016-09-26 06:02] LABS: Calcium 8.3 MG/DL (8.5-10.1); Magnesium 1.6 MG/DL (1.8-2.4); Osmolality,Calculated 278.4 MOS/KG (273-304)
[2016-09-26] MEDS: MULTIVITAMIN (CENTRUM) TABLET PO SCH (08:55)
[2016-09-26] MEDS: ASPIRIN EC 81 MG TABLET PO SCH (08:55)
[2016-09-26] MEDS: ENTACAPONE 200 MG TABLET PO SCH (08:55)
[2016-09-26] MEDS: amLODIPine 5 MG TABLET PO SCH (08:55)
[2016-09-26] MEDS: DOCUSATE SODIUM 100 MG CAPSULE PO SCH (08:55)
[2016-09-26] MEDS: TAMSULOSIN 0.4 MG CAPSULE PO SCH (08:55)
[2016-09-26] MEDS: CLOPIDOGREL 75 MG TABLET PO SCH (08:55)
[2016-09-26] MEDS: CARBIDOPA/LEVODOPA 25-100 MG TABLET PO SCH (08:55)
[2016-09-26] MEDS: CITALOPRAM 20 MG TABLET PO SCH (08:55)
[2016-09-26] MEDS: CHOLECALCIFEROL 1,000 UNIT TABLET PO SCH (08:55)
[2016-09-26] MEDS: INSULIN REGULAR 100 UNIT/ML SUBCUT SCH ×2 (08:56→12:31)
[2016-09-26] MEDS: DEXTROSE 5% NACL 0.9% 1,000 ML IV SCH (10:19)
--- NOTE | 2016-09-26 10:37 | Discharge Summary ---
<Ronnie Ardon - Last Filed: 09/26/16 10:12> Hospital Course - Hospital Course Hospital Course: This is a chronically ill 76-year-old male that presented to the ED at [facility] on September 22, 2016 from [facility] for the evaluation of altered level of consciousness and abnormal movements. The patient has a very complex medical history significant for: [id number] diabetes mellitus , transient ischemic attack, depression, Parkinson's disease, peripheral neuropathy, methamphetamine abuse, and dyslipidemia. At the time of ED presentation, the patient was noted to be grossly altered. His family was present at bedside to serve as historians. They report that the patient does not have an actual baseline, his mental status varies from day today. They reported that they were contacted by the nursing staff and told that the patient was having some abnormal movements; however they were not told exactly when these symptoms originated. The family reported that the patient has experienced a significant decline in health since May. They reported that the patient was visiting some relatives out of town when he fell from a barstool. In addition, the family reports that the patient was recently started on Cogentin and Seroquel on the day of presentation. The patient was assessed. Chest x-ray was obtained and was essentially unremarkable. CT head was absent for the presence of any acute intracranial abnormality. Labs were obtained; hematology reported a white blood cell count at 9.3, hemoglobin at 11.8, hematocrit 33.5, and platelet count at 305. Chemistry panel reported a sodium at 133, potassium of 5.1, chloride 98, carbon dioxide 26, anion gap at 14.1, BUN 54, creatinine at 2.90, glucose at 58, calcium at 9.5, magnesium at 2.0, AST of 122, ALT of 15, alkaline phosphatase at 64, vitamin B12 304, folate of 5.8, calculated osmolality at 278.4, and sedimentation rate at 34. Urinalysis was essentially unremarkable. The patient was subsequently admitted to the hospitalist services for continuation of care. The patient was gently rehydrated. A neurology consult was requested. MRI of the brain was performed on September 22, 2016 which reported probable chronic microvascular ischemic change in volume loss; however no evidence of acute intracranial abnormalities were noted. The patient's medications were reviewed and the Seroquel and Cogentin were discontinued. The patient's condition gradually improved. He has not experienced any significant overnight events. His vital signs are stable. He has now reached maximal benefit of inpatient stay and will discharge back to [facility]. Discharge Plan - Discharge Data Disposition: Disch/Xfer to Snf - Discharge Medications New OLANZapine TAB [ZyPREXA Tab] 5 mg PO DAILY@1800 #30 tablet Entacapone [Comtan] 200 mg PO QID #120 tablet Continue Carbidopa/Levodopa 25-100 [Sinemet 25-100] 2 tablet PO QID Dextrose [Glucose 40% Gel] 15 gm PO DAILY PRN PRN Reason: BLOOD SUGAR<60 Tamsulosin [Flomax] 0.4 mg PO DAILY Clopidogrel Bisulfate [Clopidogrel] 75 mg PO DAILY Citalopram [CeleXA] 20 mg PO DAILY Tramadol HCl [Ultram] 50 mg PO BID amLODIPine [Norvasc] 5 mg PO DAILY Aspirin EC Tab 81 mg PO DAILY Ibuprofen Tab [Motrin Tab] 800 mg PO Q8H PRN PRN Reason: Pain Nystatin [Nystatin Cream] 1 applic TOP BID Multivitamin [Multivitamins] 1 each PO DAILY Glucagon 1 mg IM PRN PRN PRN Reason: HYPOGLYCEMIA Cholecalciferol (Vitamin D3) [Vitamin D3] 2,000 unit PO DAILY Metformin HCl 1,000 mg PO BID Discontinued Pramipexole [Mirapex] 1 mg PO TID Quetiapine Fumarate 25 mg PO DAILY Benztropine Mesylate 1 mg PO BID QUEtiapine [SEROquel] 25 mg PO QPM Sulfameth/Trimeth 800-160 Tab [Bactrim DS Tab] 1 tablet PO BID - Follow Up or Referral - Forms/Instructions Instructions: Parkinson's Disease (DC), Altered Mental Status (GEN) Exam - Constitutional Vitals: Period Temp Pulse Resp BP Sys/Joyce Pulse Ox Last 24 Hr 96.4 F-98.7 F 57-88 18-20 109-134/63-74 93-100 Discharge Results Procedures and tests throughout hospitalization: Pending Orders 09/23/16 14:13 Blood Culture Routine Labs on day of discharge: Labs from last 24 hours 09/26/16 09/26/16 09/26/16 04:56 04:30 04:30 WBC 6.8 RBC 3.71 L Hgb 11.4 L Hct 33.9 L MCV 91.4 MCH 31 MCHC 33.6 RDW 13.6 Plt Count 294 D MPV 10.2 Neut % (Auto) 60.6 Lymph % (Auto) 25.1 [place] % (Auto) 8.0 Eos % (Auto) 4.9 Baso % (Auto) 0.7 Neut # (Auto) 4.1 Lymph # (Auto) 1.7 [place] # (Auto) 0.5 Eos # (Auto) 0.3 Baso # (Auto) 0.1 Immature Gran % 0.7 Nucleated RBC % 0.0 Immature Gran # 0.05 Nucleated RBCs # 0.00 Sodium 140 Potassium 4.0 Chloride 107 Carbon Dioxide 22 Anion Gap 15.0 BUN 11 Creatinine 0.70 GFR Calculation 91 BUN/Creatinine Ratio 15.00 Glucose 111 H POC Glucose 135 H Calculated Osmolality 278.4 Calcium 8.3 L Magnesium 1.6 L 09/25/16 09/25/16 09/25/16 18:58 15:26 12:01 WBC RBC Hgb Hct MCV MCH MCHC RDW Plt Count MPV Neut % (Auto) Lymph % (Auto) [place] % (Auto) Eos % (Auto) Baso % (Auto) Neut # (Auto) Lymph # (Auto) [place] # (Auto) Eos # (Auto) Baso # (Auto) Immature Gran % Nucleated RBC % Immature Gran # Nucleated RBCs # Sodium Potassium Chloride Carbon Dioxide Anion Gap BUN Creatinine GFR Calculation BUN/Creatinine Ratio Glucose POC Glucose 156 H 155 H 143 H Calculated Osmolality Calcium Magnesium Preliminary micro results at discharge 09/23/16 14:13 Blood Culture - Preliminary Blood No growth at 1 day 09/23/16 14:13 Blood Culture - Preliminary Blood No growth at 1 day DS: Provider Date of admission: 09/22/16 17:22 Primary care physician: . No PCP Attending physician on admission: Skyler Castro MD Consults: 09/22/16 18:05 Consult to Physician [CONS] Routine Comment: Dyskinesia and tongue fasciculations with Parkinso Consulting Provider: Filippo Pavon Person Notified: Vicky Date Notified: 09/23/16 Time Notified: 10:09 Consult Notification Comment: left message to call me back call back again@9:53 09/22/16 19:48 Consult to Dietitian [CONS] Routine Reason for Dietitian: Other Discharging clinician: Ronnie Ardon CNP <Laila Quinn - Last Filed: 09/26/16 11:28> Hospital Course - Time spent with patient Time with patient DS: Greater than 30 minutes (35) Diagnosis - Discharge Diagnosis (1) Altered mental status Status: Resolved (2) History of Parkinson's disease Status: Chronic (3) Extrapyramidal and movement disorder Status: Chronic Discharge Plan - Discharge Data Condition at Discharge: Stable Discharge Diet: advance to your usual diet Activity: as per physical therapy Hygiene: no restrictions Weight Bearing at Discharge: weight bear as tolerated Contact your physician if you experience:: fever over 101, Shortness of breath Exam - Constitutional General appearance: normal weight - Head Head exam: Present: normocephalic, atraumatic - Eye Eye exam: Present: EOMI Pupils: Present: ALLEGRA - ENT ENT exam: Present: normal exam - Neck Neck exam: Present: normal inspection - Respiratory Respiratory exam: Present: clear to auscultation bilaterally. Absent: rhonchi, wheezes - Cardiovascular Cardiovascular exam: Present: regular rate and rhythm - GI/Abdominal GI/Abdominal exam: Present: normal bowel sounds, soft. Absent: tenderness, rebound - Extremities Exam Extremities exam: Present: normal inspection - Back Exam Back exam: Present: normal inspection - Neurological Exam Neurological exam: Present: alert, oriented X3 - Psychiatric Psychiatric exam: Present: normal affect, normal mood - Skin Skin exam: Present: warm, intact
[2016-09-26 12:34] VITALS: BP 135/72
== END 2016-09-26 12:48 | DRG 57 ==
LOC: EDBD → EDUNIT# → N.ED 13:59 → N.EDINP 17:22 → SUATTDRO 17:22 → N.5E 18:46
PROVIDERS: ADMIT Internal Medicine; ATTEND Internal Medicine